=== PATIENT | female | born 1960 | race Caucasian/White ===

== ENCOUNTER 2016-07-23 08:35 | Day surgery (SDC) | payer MEDICARE, OTHER ==
[2016-07-22 15:01] VITALS: BMI 24.2
[2016-07-23] MEDS ORDERED: LIDOCAINE 1%/EPI 1:100000 (50 ML MULTI DOSE VIAL) ONE (08:41)
[2016-07-23 09:05] VITALS: TEMP 97.4
[2016-07-23] MEDS ORDERED: BUPIVACAINE HCL/PF 0.5% (5MG/ML) 10 ML VIAL ONE (10:28)
--- NOTE | 2016-07-23 10:31 | HP ---
History & Physical Update - History History: No Change - Physical Physical: No Change - Assessment Assessment: No Change - Plan Plan: No Change
[2016-07-23] MEDS ORDERED: MIDAZOLAM HCL 2 MG/2 ML SINGLE DOSE VIAL ONE ×2 (10:48→10:49)
[2016-07-23] MEDS ORDERED: PROPOFOL 20 ML ONE (11:00)
[2016-07-23] MEDS ORDERED: LIDOCAINE 1%/EPI 1:100000 (50 ML MULTI DOSE VIAL) INF ONE ×2 (11:03)
--- NOTE | 2016-07-23 12:02 | OP ---
Operative Note - Note: Operative Date: 07/23/16 Pre-Operative Diagnosis: bilateral forearm soft tissue masses Operation: Excision biopsy, bilateral forearm masses Surgeon: Shlomo Lu Anesthesia: Local, MAC Specimens Removed: soft tissue masses x 2 Estimated Blood Loss (mls): 1 Operative Report Dictated: Yes
[2016-07-23 13:11] VITALS: BP 110/70
--- NOTE | 2016-07-23 17:00 | OP ---
DATE OF OPERATION: 07/23/2016 PROCEDURE: Excision and biopsy of bilateral forearm masses (2). PREOPERATIVE DIAGNOSIS: Bilateral forearm soft tissue masses. POSTOPERATIVE DIAGNOSIS: Bilateral forearm soft tissue masses. SURGEON: Shlomo Lu MD ANESTHESIA: Local with sedation. FINDINGS AND PROCEDURE: This is a 55-year-old female who presents with slowly growing masses of the soft tissue of both forearms. The left forearm had a size of 2 cm in its widest diameter, moveable, and with well-defined borders on the dorsum of the forearm. The right forearm was smaller with about 1 cm in size and more firm, with well-defined borders and also moveable. Patient was advised excision and biopsy of both masses and consent was obtained after discussing the risks, benefits, and alternatives to the procedure. The patient was brought to the operating room and placed in a supine position with both arms abducted 90 degrees. The operative sites were prepped and draped in the usual sterile fashion. Intravenous sedation was given by the anesthesia team. Using lidocaine 1% with epinephrine, local anesthesia was administered to the proposed incision sites. The left forearm mass was addressed first, then making a 1.5-cm vertical incision over the mass using scalpel blade No. 15, dissection was carried down to the subcutaneous tissue until the fatty mass was exposed, and this was completely excised using the iris scissors combined with Bovie cautery down to its attachments to the fascia. The wound was then closed with interrupted Vicryl 3-0 suture for the dermis and continuous Biosyn 4-0 suture for the subcuticular layer. The wound closure was reinforced with Steri-Strips and covered with sterile dressing. The right forearm mass was addressed by making a 1.5-cm elliptical incision over the mass and dissection carried down using scalpel blade No. 15. Further dissection using iris scissors was done until the mass, which was grayish in color, encapsulated, was completely excised together with the ellipse of skin. The wound was closed with interrupted Vicryl 3-0 suture for the dermis and continuous Biosyn 4-0 suture for the subcuticular layer. The wound closure was also reinforced with Steri-Strips, then covered with sterile dressing. The patient was transferred to postanesthesia care unit in satisfactory condition. ESTIMATED BLOOD LOSS: About 1 mL. WOUND CLASS: Clean. Carmel [id number]
[2016-07-23 17:37] VITALS: PULSE 62
--- NOTE | 2016-07-27 15:57 | PATH ---
Surgical Pathology Report Patient Name: ALEIDA SILVERIO [facility]. Rec. #: [id number] /Age/Gender: 1960 (Age: 55) / F Account: [id number] Location: [facility] SURGICAL Taken: 07/23/2016 Received: 07/23/2016 Reported: 07/27/2016 Physicians: Shlomo Lu M.D. Specimen(s) Received A: MASS OF LEFT FOREARM B: MASS OF RIGHT FOREARM Clinical History Bilateral forearm masses Final Diagnosis A. SOFT TISSUE, LEFT FOREARM, MASS, EXCISION: MATURE ADIPOSE TISSUE CONSISTENT WITH LIPOMA WITH FOCAL DEGENERATIVE CHANGES. B. SKIN AND SOFT TISSUE, RIGHT FOREARM, MASS, EXCISION: FOREIGN BODY-TYPE REACTION WITH PIGMENT DEPOSITION AND FOREIGN BODY-TYPE MULTINUCLEATED GIANT CELL REACTION (FOREIGN BODY GRANULOMA). Comment: Iron stain is negative. Electronically Signed Jerzy Call M.D. Gross Description A. Received in formalin, labeled "mass left forearm" is a 1.5 x 1.1 x 0.7 cm rodriguez-yellow, irregular portion of lobulated adipose tissue. Sectioning reveals homogeneous yellow, smooth fat. No areas of hemorrhage or necrosis are identified. Insurance Underwriter Sales sections are submitted in one cassette. B. Received in formalin, labeled "mass right forearm" is a 1.1 x 0.9 x 0.2 cm aggregate of multiple rodriguez-yellow to black, irregular portions of soft tissue. The specimen is submitted in toto in one cassette. /07/23/201607/23/2016
== END 2016-07-23 13:50 | disposition home or self-care (01) ==
LOC: JASU-SURG 08:35
PROVIDERS: ATTEND Surgery
PROC: 0JBH0ZX Excision of Left Lower Arm Subcutaneous Tissue and Fascia, Open Approach, Diagnostic (ICD-10-PCS; 2016-07-23)
PROC: 0JBG0ZX Excision of Right Lower Arm Subcutaneous Tissue and Fascia, Open Approach, Diagnostic (ICD-10-PCS; principal; 2016-07-23 10:00)
DX: D21.12 Benign neoplasm of connective and other soft tissue of left upper limb, including shoulder (principal); D21.11 Benign neoplasm of connective and other soft tissue of right upper limb, including shoulder
CPT/HCPCS: 88304-TC; 88313-TC

== ENCOUNTER 2016-08-02 22:49 | Emergency (ER) | payer MEDICARE, OTHER ==
[2016-08-02 22:54] VITALS: BP 115/73; PULSE 62; TEMP 97.4; BMI 24.2
--- NOTE | 2016-08-02 23:27 | PDOC ---
History of Present Illness <Justin Mcdonald - Last Filed: 08/02/16 23:23> - General History Source: Patient Exam Limitations: No Limitations - History of Present Illness Initial Comments: 08/02/16 23:28 The patient is a 55 year old female with significant past medical history of hypothyroidism and acid reflux who presents to the ED with laceration to the right wrist just prior to arrival. 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 She also had complaints of some lightheadedness at the time the incident occurred. However at time of evaluation, she states not feeling lightheaded. The patient denies fever, chills, cough, SOB, chest pain, and palpitations. The patient denies abdominal pain, nausea, vomiting, and diarrhea. Allergies: NKDA Social History: No alcohol, tobacco, or drug use reported. Past Surgical History: partial right knee replacement, hernia repair PCP: Dr. Melany García <Gabrielle Sweeney - Last Filed: 08/02/16 23:29> - General Chief Complaint: Injury Stated Complaint: LACERATION Time Seen by Provider: 08/02/16 23:15 Past History - Past Medical History Anemia: No Asthma: No Cancer: No Cardiac Disorders: No CVA: No COPD: No CHF: No Dementia: No Diabetes: No (BORDERLINE - NO MEDS) GI Disorders: Yes (acid reflux) Disorders: No HTN: No Hypercholesterolemia: No Liver Disease: No Seizures: No Thyroid Disease: Yes (thyroid removed) - Surgical History Abdominal Surgery: Yes (HERNIA) Appendectomy: No Cardiac Surgery: No Cholecystectomy: No Lung Surgery: No Neurologic Surgery: No Orthopedic Surgery: Yes (PARTIAL RIGHT knee REPLACEMENT) - Psycho/Social/Smoking Cessation Hx Anxiety: No Suicidal Ideation: No Smoking Status: No Smoking History: Never smoked Have you smoked in the past 12 months: No Number of Cigarettes Smoked Daily: 0 Hx Alcohol Use: Yes (socially) Drug/Substance Use Hx: No Substance Use Type: Alcohol Hx Substance Use Treatment: No <Justin Mcdonald - Last Filed: 08/02/16 23:23> <Gabrielle Sweeney - Last Filed: 08/02/16 23:29> - Past Medical History Allergies/Adverse Reactions: Allergies Allergy/AdvReac Type Severity Reaction Status Date / Time No Known Drug Allergies Allergy Verified 08/02/16 22:51 Home Medications: Ambulatory Orders Levothyroxine [Synthroid -] 100 mcg PO DAILY 04/08/14 Ibuprofen 1 tab PO TID PRN #20 tablet 07/23/16 Review of Systems - Review of Systems Able to Perform ROS?: Yes Comments:: 08/02/16 23:28 +right wrist laceration, lightheadedness Absent: fever, chills, diaphoresis, cough, SOB, chest pain, abdominal pain, nausea, vomiting, and diarrhea <Gabrielle Sweeney - Last Filed: 08/02/16 23:29> *Physical Exam - Vital Signs Last Vital Signs Temp Pulse Resp BP Pulse Ox 97.4 F L 62 18 115/73 99 08/02/16 22:51 08/02/16 22:51 08/02/16 22:51 08/02/16 22:51 08/02/16 22:51 - Physical Exam General Appearance: Yes: Nourished, Appropriately Dressed. No: Apparent Distress Respiratory/Chest: negative: Respiratory Distress Cardiovascular: positive: Regular Rhythm, Regular Rate Integumentary: positive: Normal Color, Other (1 CM SUP LAC ULNAR ASPECT DOSTAL WRIST NTV INACT DISTALLY) <Justin Mcdonald - Last Filed: 08/02/16 23:23> - Vital Signs Last Vital Signs Temp Pulse Resp BP Pulse Ox 97.4 F L 62 18 115/73 99 08/02/16 22:51 08/02/16 22:51 08/02/16 22:51 08/02/16 22:51 08/02/16 22:51 <Gabrielle Sweeney - Last Filed: 08/02/16 23:29> Procedures - Laceration/Wound Repair Right Medial Wrist Wound Length: to 2.5 cm Wound Explored: clean Wound's Depth, Shape: superficial Irrigated w/ Saline: Yes Wound Repaired With: Dermabond Sterile Dressing Applied: Yes <Justin Mcdonald - Last Filed: 08/02/16 23:23> *DC/Admit/Observation/Transfer <Justin Mcdonald - Last Filed: 08/02/16 23:23> - Attestations Scribe Attestion: 08/02/16 23:28 Documentation prepared by Gabrielle Sweeney, acting as director of medical staff services for Justin Mcdonald MD <Gabrielle Sweeney - Last Filed: 08/02/16 23:29> Diagnosis at time of Disposition: Laceration - Discharge Dispostion Disposition: HOME Condition at time of disposition: Good - Referrals Referrals: Gloria García [Primary Care Provider] - - Patient Instructions Additional Instructions: KEEP WOUND DRY FOR 48 HOURS. AFTER, REGULAR SOAP AND WATER DO NOT REMOVE STERI-STRIPS. THEY WOULD FALL ON THEIR OWN RETURN IF BLEEDING, REDNESS, SWELLING, OR SEVERE PAIN
== END 2016-08-02 23:38 | disposition home or self-care (01) ==
LOC: JER 22:49
PROC: 0HQEXZZ Repair Left Lower Arm Skin, External Approach (ICD-10-PCS; principal; 2016-08-02)
DX: S61.511A Laceration without foreign body of right wrist, initial encounter (principal); W25.XXXA Contact with sharp glass, initial encounter; Y93.89 Activity, other specified; Y92.030 Kitchen in apartment as the place of occurrence of the external cause
CPT/HCPCS: 12001-25; 99282-25

== ENCOUNTER 2017-08-18 19:11 | Emergency (ER) | payer MEDICARE, OTHER ==
[2017-08-18 19:20] VITALS: BP 103/65; PULSE 75; TEMP 97.7; BMI 24.2
--- NOTE | 2017-08-18 20:28 | PDOC ---
History of Present Illness - General Chief Complaint: Pain, Acute Stated Complaint: SHOULDER/BACK PAIN Time Seen by Provider: 08/18/17 19:56 Past History - Past Medical History Allergies/Adverse Reactions: Allergies Allergy/AdvReac Type Severity Reaction Status Date / Time No Known Drug Allergies Allergy Verified 08/18/17 19:16 Home Medications: Ambulatory Orders Levothyroxine [Synthroid -] 100 mcg PO DAILY 04/08/14 Ibuprofen 600 mg PO TID #30 tablet 08/18/17 Oxycodone HCl/Acetaminophen [Percocet 5-325 mg Tablet] 1 tab PO Q6H PRN #20 tablet MDD 4 08/18/17 Anemia: No Asthma: No Cancer: No Cardiac Disorders: No CVA: No COPD: No CHF: No Dementia: No Diabetes: No (BORDERLINE - NO MEDS) GI Disorders: Yes (acid reflux) Disorders: No HTN: No Hypercholesterolemia: No Liver Disease: No Seizures: No Thyroid Disease: Yes (thyroid removed) - Surgical History Abdominal Surgery: Yes (HERNIA) Appendectomy: No Cardiac Surgery: No Cholecystectomy: No Lung Surgery: No Neurologic Surgery: No Orthopedic Surgery: Yes (PARTIAL RIGHT knee REPLACEMENT) - Suicide/Smoking/Psychosocial Hx Smoking Status: No Smoking History: Never smoked Have you smoked in the past 12 months: No Number of Cigarettes Smoked Daily: 0 Hx Alcohol Use: Yes (socially) Drug/Substance Use Hx: No Substance Use Type: Alcohol Hx Substance Use Treatment: No Review of Systems - Review of Systems Able to Perform ROS?: Yes Comments:: 08/18/17 20:28 CONSTITUTIONAL: Absent: fever, chills, diaphoresis, generalized weakness, malaise, loss of appetite HEENT: Absent: rhinorrhea, nasal congestion, throat pain, throat swelling, difficulty swallowing, mouth swelling, ear pain, eye pain, visual Changes CARDIOVASCULAR: Absent: chest pain, loss of consciousness, palpitations, irregular heart rate, peripheral edema RESPIRATORY: Absent: cough, shortness of breath, dyspnea with exertion, orthopnea, wheezing, stridor, hemoptysis GASTROINTESTINAL: Absent: abdominal pain, abdominal distension, nausea, vomiting, diarrhea, constipation, melena, hematochezia GENITOURINARY: Absent: dysuria, frequency, urgency, hesitancy, hematuria, flank pain, genital pain MUSCULOSKELETAL: Absent: myalgia, arthralgia, joint swelling SKIN: Absent: rash, itching, pallor HEMATOLOGIC/IMMUNOLOGIC: Absent: easy bleeding, easy bruising, lymphadenopathy, frequent infections ENDOCRINE: Absent: unexplained weight gain, unexplained weight loss, heat intolerance, cold intolerance NEUROLOGIC: Absent: headache, focal weakness or paresthesias, dizziness, unsteady gait, seizure, mental status changes, bladder or bowel incontinence PSYCHIATRIC: Absent: anxiety, depression, suicidal or homicidal ideation, hallucinations. Is the patient limited Greenlandic proficient: No *Physical Exam - Vital Signs Last Vital Signs Temp Pulse Resp BP Pulse Ox 97.7 F 75 18 103/65 97 08/18/17 19:17 08/18/17 19:17 08/18/17 19:17 08/18/17 19:17 08/18/17 19:17 - Physical Exam Comments: 08/18/17 20:29 GENERAL: Well developed, well nourished. Awake and alert. No acute distress. HEENT: Normocephalic, atraumatic. PERRLA, EOMI. No conjunctival pallor. Sclera are non- icteric. Moist mucous membranes. Oropharynx is clear. NECK: Supple. Full ROM. No JVD. Carotid pulses 2+ and symmetric, without bruits. No thyromegaly. No lymphadenopathy. CARDIOVASCULAR: Regular rate and rhythm. No murmurs, rubs, or gallops. Distal pulses are 2+ and symmetric. PULMONARY: No evidence of respiratory distress. Lungs clear to auscultation bilaterally. No wheezing, rales or rhonchi. ABDOMINAL: Soft. Non-tender. Non-distended. No rebound or guarding. No organomegaly. Normoactive bowel sounds. MUSCULOSKELETAL Normal range of motion at all joints. No bony deformities or tenderness. No CVA tenderness. EXTREMITIES: No cyanosis. No clubbing. No edema. No calf tenderness. SKIN: Warm and dry. Normal capillary refill. No rashes. No jaundice. NEUROLOGICAL: Alert, awake, appropriate. Cranial nerves 2-12 intact. No deficits to light touch and temperature in face, upper extremities and lower extremities. No motor deficits in the in face, upper extremities and lower extremities. Normoreflexic in the upper and lower extremities. Normal speech. Toes are down- going bilaterally. Gait is normal without ataxia. PSYCHIATRIC: Cooperative. Good eye contact. Appropriate mood and affect. *DC/Admit/Observation/Transfer Diagnosis at time of Disposition: Upper back pain Left shoulder pain Qualifiers: Chronicity: acute Qualified Code(s): M25.512 - Pain in left shoulder - Discharge Dispostion Disposition: HOME Condition at time of disposition: Stable Admit: No - Referrals Referrals: Gloria García [Primary Care Provider] - Kiet Gamble MD [Staff Physician] - - Patient Instructions Printed Discharge Instructions: DI for Shoulder Pain Additional Instructions: You were evaluated for your shoulder pain today. Please take ibuprofen 800 mg every 8 hours for the next week. Your also prescribed Percocet. Please take this medication every 6 hours as needed for breakthrough pain. Do not drive after taking this medication as it may make you sleepy. Please follow-up with orthopedics. A referral is provided for Dr. Gamble. Return to the emergency department if you have worsening pain, numbness and tingling in your arms, weakness, or any changes in your symptoms. Print Language: CUBAN - Post Discharge Activity
[2017-08-18] MEDS ORDERED: IBUPROFEN 600 MG TABLET (FP) PO ONE ×2 (20:44→20:48)
[2017-08-18] MEDS ORDERED: IBUPROFEN 400 MG TABLET (FP) PO ONE (20:47)
== END 2017-08-18 20:51 | disposition home or self-care (01) ==
LOC: JERFT 19:11
DX: M54.9 Dorsalgia, unspecified (principal); M25.512 Pain in left shoulder; R73.03 Prediabetes
CPT/HCPCS: 99281-25

== ENCOUNTER 2017-09-14 05:05 | Day surgery (SDC) | payer MEDICARE, OTHER ==
[2017-09-08 09:04] VITALS: BMI 24.2
[2017-09-14] MEDS ORDERED: DESFLURANE GAS 240 ML BOTTLE IH ONE (07:21)
[2017-09-14] MEDS ORDERED: PROPOFOL 20 ML ONE (07:37)
[2017-09-14] MEDS ORDERED: SUCCINYLCHOLINE CHLORIDE 200 MG/10 ML VIAL ONE (07:37)
[2017-09-14] MEDS ORDERED: ONDANSETRON 4 MG/2 ML VIAL IVPUSH PRN (07:38)
[2017-09-14] MEDS ORDERED: ROCURONIUM BROMIDE 50 MG/5 ML VIAL ONE (07:38)
[2017-09-14] MEDS ORDERED: oxyCODONE HCL 5 MG TABLET PO PRN ×2 (07:38)
[2017-09-14] MEDS ORDERED: DEXAMETHASONE SOD PHOSPHATE 4 MG/1 ML VIAL ONE (07:40)
[2017-09-14] MEDS ORDERED: LIDOCAINE HCL/PF 2% SDV 5ML VIAL ONE (07:40)
[2017-09-14] MEDS ORDERED: LACTATED RINGERS SOLUTION 1,000 ML IV SCH (07:45)
[2017-09-14] MEDS ORDERED: DEXAMETHASONE SOD PHOSPHATE/PF 10 MG/ML SDV ONE (08:01)
[2017-09-14] MEDS ORDERED: ROPIVACAINE HCL 0.5% 30ML VIAL ONE (08:01)
--- NOTE | 2017-09-14 08:01 | HP ---
Satellite H - Chief Complaint Chief Complaint: left shoulder impingement, pain History of Present Illness: left shoulder impingement syndrome, partial RTC tear History Source: Patient Limitations to Obtaining History: No Limitations - Past Medical History Allergies/Adverse Reactions: Allergies Allergy/AdvReac Type Severity Reaction Status Date / Time No Known Drug Allergies Allergy Verified 09/14/17 07:37 ...LMP: 10/21/11 - Current Medications Current Medications: Home Medications Medication Instructions Recorded Levothyroxine [Synthroid -] 175 mcg PO DAILY 04/08/14 Ibuprofen 600 mg PO TID #30 tablet 08/18/17 Oxycodone HCl/Acetaminophen 1 tab PO Q6H PRN #20 tablet MDD 4 08/18/17 [Percocet 5-325 mg Tablet] Satellite Physical Exam - Physical Examination Vital Signs: Vital Signs Period Temp Pulse Resp BP Sys/Gagnon Pulse Ox Last 24 Hr 97.9 F 59 16 100/67 98 General Appearance: Well Nourished ENT: Clear Lung: Clear to auscultation Heart: Regular rate & rhythm Breasts: Soft Abdomen: Soft Extremities: No edema Satellite Impression/Plan - Impression/Plan Impression: left shoulder impingement syndrome, partial RTC tear Operative Procedure: left shoulder arthroscopy, decompresion, possible RTC repair Date to be Performed: 09/14/17
[2017-09-14] MEDS ORDERED: MIDAZOLAM HCL 2 MG/2 ML SINGLE DOSE VIAL ONE ×2 (08:02)
[2017-09-14] MEDS ORDERED: ceFAZolin SODIUM 1 GM VIAL IVPB ONE (08:55)
[2017-09-14] MEDS ORDERED: ceFAZolin SODIUM 1 GM VIAL ONE (09:00)
[2017-09-14] MEDS ORDERED: ePHEDrine SULFATE 50 MG/1 ML AMPULE ONE (09:15)
--- NOTE | 2017-09-14 09:48 | OP ---
Operative Note - Note: Operative Date: 09/14/17 Pre-Operative Diagnosis: left shoulder subacromial impingement, Partial RTC tear Operation: left shoulder arthroscopy, subacromial decompression Post-Operative Diagnosis: Same as Pre-op Surgeon: Kiet Gamble Anesthesiologist/CORN CUTTER: Kyler Aviles Anesthesia: General, MAC Specimens Removed: shavings Estimated Blood Loss (mls): 75 Drains, Volume Out (mls): 0 Blood Volume Replaced (mls): 0 Fluid Volume Replaced (mls): 700 Operative Report Dictated: Yes
--- NOTE | 2017-09-14 10:13 | SPEC ---
DATE OF OPERATION: 09/14/2017 PREOPERATIVE DIAGNOSES: Left shoulder impingement syndrome and partial rotator cuff tear. POSTOPERATIVE DIAGNOSES: Left shoulder impingement syndrome and partial rotator cuff tear. PROCEDURE: Left shoulder arthroscopy and subacromial decompression. SURGEON: Kiet Gamble MD DIP BRAZIER: None. INTELLIGENCE AGENT: , COUNTERSINKER ANESTHESIA: Left interscalene block, LMA anesthesia. DRAINS: None. COMPLICATIONS: None. BLOOD LOSS: 75 mL. BLOOD GIVEN: None. FLUID REPLACEMENT: 700 mL. This patient is a 56-year-old female with a preoperative diagnosis of recurrent left shoulder impingement syndrome and a partial rotator cuff tear. After understanding the potential risks, complications, alternatives and benefits of surgery versus nonsurgical treatment, the patient elected to undergo this procedure. PROCEDURE: The patient was brought to the operating room. Peripheral IV placed. IV sedation given. Ancef 2 g was given. A left interscalene block was performed. She was placed in the beach chair position with ample padding throughout. The upper extremity was prepped and draped in a sterile fashion. The bony landmarks marked out with a marking pen. Posterior portal was established with a No. 11 scalpel blade and the arthroscope introduced into the glenohumeral joint for diagnostic arthroscopy. All the intraarticular structures were identified and looked good. The glenoid labrum looked good. The biceps tendon was intact. The glenoid and humeral head were free of arthritis. The patient had a very small amount of undersurface fraying of the rotator cuff. There was no tear. It did not need to be debrided. The area was washed out and the arthroscope introduced into the subacromial space. The patient had a tremendous amount of bursitis in the subacromial space. A spinal needle was used to establish a lateral portal under direct visualization. A No. 11 scalpel blade was used to cut through the skin and a Green cannula introduced into the subacromial space. The ArthroCare ablator was then used to do a soft tissue subacromial decompression of all this adhesive inflammatory bursitis. This revealed a large subacromial spur which was taken down with a 5.5-mm oval bur. Once this was done and the undersurface of the acromion was flat and the bursectomy was completed, the top surface of the rotator cuff was directly visualized and was seen to be intact with no tear whatsoever. The shaver was reintroduced into the subacromial space. All debris was removed and all instrumentation then removed from the shoulder. Then 20 mL of 0.5% Marcaine was introduced into the subacromial space. A 3-0 nylon suture was used in a sport stitch fashion to close the 2 arthroscopy portals. There was a wash and dry performed with Xeroform, 4 x 4, ABD and tape. Total operative time was 45 minutes. A splint was applied. Patient was taken down out of the beach chair position and brought to the ambulatory recovery room in stable condition. Carmel [id number]
[2017-09-14 12:02] VITALS: BP 111/71; PULSE 65; TEMP 97.8
--- NOTE | 2017-09-16 08:58 | PATH ---
Surgical Pathology Report Patient Name: ALEIDA SILVERIO Med. Rec. #: [id number] /Age/Gender: 1960 (Age: 56) / F Account: [id number] Location: [facility] SURGICAL Taken: 09/14/2017 Received: 09/14/2017 Reported: 09/16/2017 Physicians: Kiet Gamble M.D. Specimen(s) Received LEFT SHOULDER SHAVINGS Clinical History Impingement syndrome left shoulder Final Diagnosis LEFT SHOULDER, ARTHROSCOPIC SHAVING: PORTIONS OF SYNOVIUM, CARTILAGE, SKELETAL MUSCLE AND BONE CONSISTENT WITH ARTHROSCOPIC SHAVINGS. Electronically Signed [place] M.D. Gross Description Received in formalin, labeled "left shoulder shavings," is a 3.5 x 3.4 x 0.5 cm. aggregate of rodriguez-yellow soft tissue fragments. A publications sales representative portion is submitted in one cassette. /09/14/201709/14/2017
== END 2017-09-14 12:31 | disposition home or self-care (01) ==
LOC: JASU-SURG 05:05
PROVIDERS: ATTEND Orthopaedic Surgery
PROC: 0RBK4ZZ Excision of Left Shoulder Joint, Percutaneous Endoscopic Approach (ICD-10-PCS; principal; 2017-09-14 09:00)
DX: M75.42 Impingement syndrome of left shoulder (principal); M75.102 Unspecified rotator cuff tear or rupture of left shoulder, not specified as traumatic; M71.9 Bursopathy, unspecified
CPT/HCPCS: 88304-TC; 94760

== ENCOUNTER 2019-07-10 15:10 | Emergency (ER) | payer OTHER ==
--- NOTE | 2019-07-10 15:27 | PDOC ---
Rapid Medical Evaluation Chief Complaint: Pain Time Seen by Provider: 07/10/19 15:24 Medical Evaluation: Allergies Allergy/AdvReac Type Severity Reaction Status Date / Time No Known Drug Allergies Allergy Verified 07/10/19 15:23 07/10/19 15:24 I have performed a brief in-person evaluation of this patient. The patient presents with a chief complaint of: h/o prediabetes, GERD, LT flank pain radiating to back x 3 days. Denies dysuria, frequency or hematuria. report nausea but denies vomiting Pertinent physical exam findings: A&O x 3 in NAD I have ordered the following: cbc, cmp, ua, ucx The patient will proceed to the ED for further evaluation. Discharge Disposition - Diagnosis Left flank pain - Discharge Dispostion Condition at time of disposition: Stable - Referrals - Patient Instructions - Post Discharge Activity
[2019-07-10 15:28] VITALS: BMI 23.6
[2019-07-10] MEDS ORDERED: MAG HYDROX/AL HYDROX/SIMETH 30 ML UNIT-DOSE CUP PO ONE (16:11)
--- NOTE | 2019-07-10 16:26 | PDOC ---
History of Present Illness - General Chief Complaint: Pain Stated Complaint: ABD PAIN Time Seen by Provider: 07/10/19 15:24 History Source: Patient Exam Limitations: No Limitations Past History - Past Medical History Allergies/Adverse Reactions: Allergies Allergy/AdvReac Type Severity Reaction Status Date / Time No Known Drug Allergies Allergy Verified 07/10/19 15:23 Home Medications: Ambulatory Orders Levothyroxine [Synthroid -] 175 mcg PO DAILY 04/08/14 Ibuprofen 600 mg PO TID #30 tablet 08/18/17 Oxycodone HCl/Acetaminophen [Percocet 5-325 mg Tablet] 1 tab PO Q6H PRN #20 tablet MDD 4 08/18/17 Hydrocodone/Acetaminophen [Hydrocodone-Acetamin 5-325 mg] 1 - 2 tab PO TID PRN # 40 tablet MDD 6 09/14/17 Anemia: No Asthma: No Cancer: No Cardiac Disorders: No CVA: No COPD: No CHF: No Dementia: No Diabetes: No (BORDERLINE - NO MEDS) GI Disorders: Yes (acid reflux) Disorders: No HTN: No Hypercholesterolemia: No Liver Disease: No Seizures: No Thyroid Disease: Yes (thyroid removed) - Surgical History Abdominal Surgery: Yes (UMBILICAL HERNIA) Appendectomy: No Cardiac Surgery: No Cholecystectomy: No Lung Surgery: No Neurologic Surgery: No Orthopedic Surgery: Yes (PARTIAL RIGHT knee REPLACEMENT) - Immunization History Immunization Up to Date: Yes - Psycho Social/Smoking Cessation Hx Smoking Status: No Smoking History: Never smoked Have you smoked in the past 12 months: No Number of Cigarettes Smoked Daily: 0 If you are a former smoker, when did you quit?: 21YRS AGO Hx Alcohol Use: No Drug/Substance Use Hx: No Substance Use Type: Alcohol Hx Substance Use Treatment: No *Physical Exam - Vital Signs Last Vital Signs Temp Pulse Resp BP Pulse Ox 97.9 F 79 16 107/70 100 07/10/19 15:24 07/10/19 15:24 07/10/19 15:24 07/10/19 15:24 07/10/19 15:24 - Physical Exam General Appearance: No: Apparent Distress Respiratory/Chest: positive: Lungs Clear, Normal Breath Sounds. negative: Respiratory Distress Cardiovascular: positive: Regular Rhythm, Regular Rate, S1, S2. negative: Murmur Gastrointestinal/Abdominal: positive: Tender (mild along LUQ), Soft. negative: Distended, Guarding, Rebound, Hernia, Mass Musculoskeletal: positive: CVA Tenderness (L) (mild) Integumentary: positive: Normal Color Neurologic: positive: Alert ED Treatment Course - LABORATORY CBC & Chemistry Diagram: 07/10/19 15:35 07/10/19 15:30 Medical Decision Making - Medical Decision Making 58 y/o F hx of pre-DM, GERD presents with LUQ pain radiating to L flank x 3 days along with nausea. Pain worse after eating food but does not feel like her GERD. Has been using Tylenol and Motrin without relief of symptoms. Denies fever , URI sxs, sob, cp, vomiting/diarrhea, dysuria, hematuria, constipation. Last BM was today. Hx of thyroidectomy 5 years ago and umbilical hernia repair 4 years ago. Denies alcohol intoxication Consider pancreatitis, kidney stone (less suspicious given how comfortable patient appears) Plan: Labs, urine 07/10/19 16:23 Abnormal Lab Results 07/10/19 07/10/19 15:30 15:35 Anion Gap 7 L Random Glucose 278 H Lipase 803 H Urine Glucose (UA) 3+ H Labs with elevated lipase, though not 3x the upper limit D/W Dr. Hennessy - recommends CT A/P to further assess 07/10/19 17:46 CT A/P shows chronic calcific pancreatitis with dilation of the main pancreatic duct and possible obstructing intradutal calucli in the region of the ampulla As d/w Dr. Moody, this was also seen in CT A/P 04/2017 (though not listed in the report) patient still with LUQ pain D/W Dr. Hennessy - recommends GI consult, possible admit Patient signed out to CYNDE[facility] pandey pending GI consult 07/10/19 19:16 Discharge - Discharge Information Problems reviewed: Yes Clinical Impression/Diagnosis: Left upper quadrant pain Condition: Stable - Follow up/Referral Referrals: Gloria García [Primary Care Provider] - - Patient Discharge Instructions - Post Discharge Activity
[2019-07-10 16:31] LABS: URINE APPEARANCE CLEAR; URINE BILIRUBIN NEGATIVE (NEGATIVE); URINE COLOR YELLOW; URINE GLUCOSE (UA) 3+ (NEGATIVE); URINE KETONE NEGATIVE (NEGATIVE); URINE LEUK ESTERASE NEGATIVE (NEGATIVE); URINE NITRITE NEGATIVE (NEGATIVE); URINE PROTEIN NEGATIVE (NEGATIVE); URINE UROBILINOGEN 0.2 mg/dL (0.2-1.0)
[2019-07-10] MEDS ORDERED: MAG HYDROX/AL HYDROX/SIMETH 30 ML UNIT-DOSE CUP ONE ×2 (16:38→16:39)
[2019-07-10 16:41] LABS: BASO % 0.4 % (0-2.0); EOS % 3.4 % (0-4.5); HEMATOCRIT 39.6 % (32.4-45.2); HEMOGLOBIN 13.1 GM/dL (10.7-15.3); LYMPH % 24.7 % (8-40); MCH 28.5 pg (25.7-33.7); MEAN CELL VOLUME 86.2 fl (80-96); MEAN PLT VOLUME 9.3 fl (7.5-11.1); MONO % 9.4 % (3.8-10.2); NEUT % 62.1 % (42.8-82.8); PLATELET COUNT 182 K/MM3 (134-434); RDW 14.5 % (11.6-15.6); WHITE BLOOD COUNT 6.7 K/mm3 (4.0-10.0)
[2019-07-10 17:07] LABS: ALBUMIN 3.9 g/dl (3.4-5.0); BILIRUBIN,TOTAL 0.4 mg/dL (0.2-1); CALCIUM 9.3 mg/dL (8.5-10.1); CREATININE 0.9 mg/dL (0.55-1.3); TOT PROT 7.9 g/dl (6.4-8.2)
[2019-07-10] MEDS ORDERED: SODIUM CHLORIDE 1,000 ML IV STA (17:29)
--- NOTE | 2019-07-10 19:43 | PDOC ---
*Physical Exam - Vital Signs Last Vital Signs Temp Pulse Resp BP Pulse Ox 97.9 F 79 16 107/70 100 07/10/19 15:24 07/10/19 15:24 07/10/19 15:24 07/10/19 15:24 07/10/19 15:24 ED Treatment Course - LABORATORY CBC & Chemistry Diagram: 07/10/19 15:35 07/10/19 15:30 - ADDITIONAL ORDERS Additional order review: Laboratory Results 07/10/19 07/10/19 15:35 15:30 Sodium 138 Potassium 4.0 Chloride 104 Carbon Dioxide 27 Anion Gap 7 L BUN 15.0 Creatinine 0.9 Est GFR (CKD-EPI)AfAm 82.26 Est GFR (CKD-EPI)NonAf 70.98 Random Glucose 278 H Calcium 9.3 Total Bilirubin 0.4 AST 19 ALT 25 Alkaline Phosphatase 109 Total Protein 7.9 Albumin 3.9 Lipase 803 H Urine Color Yellow Urine Appearance Clear Urine pH 5.0 D Ur Specific [place] 1.021 Urine Protein Negative Urine Glucose (UA) 3+ H Urine Ketones Negative Urine Blood Negative Urine Nitrite Negative Urine Bilirubin Negative Urine Urobilinogen 0.2 Ur Leukocyte Esterase Negative 07/10/19 15:35 RBC 4.60 MCV 86.2 MCHC 33.0 RDW 14.5 MPV 9.3 D Neutrophils % 62.1 D Lymphocytes % 24.7 D Monocytes % 9.4 Eosinophils % 3.4 Basophils % 0.4 - Medications Given in the ED: ED Medications Discontinued Medications Generic Name Dose Route Start Last Admin Trade Name Freq PRN Reason Stop Dose Admin Al Hydroxide/Mg Hydroxide 30 ml 07/10/19 16:11 07/10/19 16:49 Mylanta Oral Suspension - PO 07/10/19 16:12 30 ml ONCE ONE Administration Sodium Chloride 1,000 mls @ 1,000 mls/hr 07/10/19 17:29 07/10/19 18:13 Normal Saline - IV 07/10/19 18:28 1,000 mls/hr ASDIR STA Administration Medical Decision Making - Medical Decision Making 07/10/19 19:45 Dr. Kerns paged. 07/10/19 20:[address] Kerns. recommends transfer to tertiary center. concerned for obstructed stone in pancreatic duct. need ERCP. recommend transfer to [facility] 07/10/19 21:16 [facility] transfer initiated pending call back from [facility] 07/10/19 22:47 patient is accepted for transfer BY GI Dr. murphy (GI fellow)/ Dr. Nichole to be transferred to the [facility] ED./ I spoke to ED attending Dr. Thayer. accepted patient for transfer 07/10/19 22:49 Discharge - Discharge Information Problems reviewed: Yes Clinical Impression/Diagnosis: Left upper quadrant pain Pancreatitis Qualifiers: Chronicity: chronic Pancreatitis type: unspecified pancreatitis type Qualified Code(s): K86.1 - Other chronic pancreatitis Condition: Stable Disposition: TRANSFER ACUTE CARE/OTHER HOSP - Follow up/Referral Referrals: Gloria García [Primary Care Provider] - - Patient Discharge Instructions - Post Discharge Activity
[2019-07-10] MEDS ORDERED: SODIUM CHLORIDE 1,000 ML IV SCH (19:45)
[2019-07-10 23:25] VITALS: BP 111/75; TEMP 97.8
[2019-07-11 00:26] VITALS: PULSE 71
== END 2019-07-11 00:27 | disposition short-term general hospital (02) ==
LOC: JER 15:10
PROC: 3E0337Z Introduction of Electrolytic and Water Balance Substance into Peripheral Vein, Percutaneous Approach (ICD-10-PCS; principal; 2019-07-10)
DX: K86.1 Other chronic pancreatitis (principal); K21.9 Gastro-esophageal reflux disease without esophagitis; R73.09 Other abnormal glucose; E89.0 Postprocedural hypothyroidism
CPT/HCPCS: 36415; 74177-TC; 80053; 81003; 83690; 85025; 87086; 96360; 99284-25; J7030; Q9967

== ENCOUNTER 2022-07-06 04:08 | Day surgery (SDC) | payer OTHER ==
[2022-07-01 14:04] VITALS: BMI 22.6
[~2022-07-06 04:08] MED LIST: ceFAZolin SODIUM 1 GM VIAL IVPB ONE
[2022-07-06 08:53] VITALS: RESP 18
[2022-07-06] MEDS ORDERED: MIDAZOLAM HCL 2 MG/2 ML SINGLE DOSE VIAL ONE (11:05)
[2022-07-06] MEDS ORDERED: ceFAZolin SODIUM 1 GM VIAL IVPB ONE (11:08)
[2022-07-06 12:51] VITALS: BP 114/62; TEMP 97
[2022-07-06 12:52] VITALS: PULSE 68
== END 2022-07-06 12:45 | disposition home or self-care (01) ==
LOC: JASU-SURG 04:08
PROVIDERS: ATTEND Urology
PROC: 0TF4XZZ Fragmentation in Left Kidney Pelvis, External Approach (ICD-10-PCS; principal; 2022-07-06 10:30)
DX: N20.0 Calculus of kidney (principal); R31.29 Other microscopic hematuria; R39.198 Other difficulties with micturition

== ENCOUNTER 2022-07-09 16:47 | Emergency (ER) | payer OTHER ==
[2022-07-09 17:07] VITALS: BP 102/55; PULSE 67; RESP 18; TEMP 98.1; BMI 22.6
[2022-07-09] MEDS ORDERED: DOXYCYCLINE HYCLATE 100 MG CAPSULE PO ONE ×2 (17:39→17:46)
== END 2022-07-09 19:35 | disposition home or self-care (01) ==
LOC: JER 16:47
DX: T81.31XA Disruption of external operation (surgical) wound, not elsewhere classified, initial encounter (principal)
CPT/HCPCS: 73110-TC-RT-FY; 73130-TC-RT-FY; 99283-25

== ENCOUNTER 2023-08-08 18:55 | Emergency (ER) | payer OTHER ==
[2023-08-08 19:29] VITALS: RESP 18; BMI 22.6
[2023-08-08] MEDS ORDERED: ACETAMINOPHEN INJECTION 100 ML IVPB ONE (20:47)
[2023-08-08] MEDS: ACETAMINOPHEN 1000 MG/100 ML BAG IVPB ONE (21:01)
[2023-08-08 21:24] LABS: BASO % 0.4 % (0-2.0); EOS % 2.6 % (0-4.5); HEMATOCRIT 35.4 % (32.4-45.2); HEMOGLOBIN 12.1 GM/dL (10.7-15.3); LYMPH % 20.8 % (8-40); MCHC 34.3 g/dl (32.0-36.0); MEAN CELL VOLUME 81.6 fl (80-96); MEAN PLT VOLUME 8.6 fl (7.5-11.1); MONO % 13.4 % (3.8-10.2); NEUT % 62.8 % (42.8-82.8); PLATELET COUNT 193 10^3/uL (134-434); RBC 4.34 M/mm3 (3.60-5.2); RDW 14.1 % (11.6-15.6); WHITE BLOOD COUNT 8.2 K/mm3 (4.0-10.0)
[2023-08-08 21:43] LABS: POTASSIUM 4.5 mmol/L (3.5-5.1)
[2023-08-08 21:47] LABS: ALBUMIN 3.4 g/dl (3.4-5.0)
[2023-08-08 21:48] LABS: CALCIUM 9.9 mg/dL (8.5-10.1)
[2023-08-08 21:49] LABS: CREATININE 0.7 mg/dL (0.55-1.3); TOT PROT 7.6 g/dl (6.4-8.2)
[2023-08-08 21:50] LABS: BILIRUBIN,TOTAL 0.4 mg/dL (0.2-1)
[2023-08-08 23:02] LABS: EPI CELLS 2 /uL (0-25.1); HYALINE CASTS 0 /uL (0-3.1); PH,URINE 6.5 (5.0-8.0); URINE APPEARANCE CLEAR; URINE BACTERIA 8 /uL (0-1359); URINE BILIRUBIN NEGATIVE (NEGATIVE); URINE COLOR YELLOW; URINE GLUCOSE (UA) NEGATIVE (NEGATIVE); URINE KETONE NEGATIVE (NEGATIVE); URINE LEUK ESTERASE TRACE (NEGATIVE); URINE NITRITE NEGATIVE (NEGATIVE); URINE PROTEIN NEGATIVE (NEGATIVE); URINE RBC 14 /uL (0-23.9); URINE UROBILINOGEN 0.2 mg/dL (0.2-1.0); URINE WBC 4 /uL (0-25.8)
[2023-08-08 23:43] VITALS: BP 118/68; PULSE 72; TEMP 98.6
== END 2023-08-08 23:29 | disposition home or self-care (01) ==
LOC: JER 18:55
PROC: 3E033NZ Introduction of Analgesics, Hypnotics, Sedatives into Peripheral Vein, Percutaneous Approach (ICD-10-PCS; principal; 2023-08-08)
DX: M79.10 Myalgia, unspecified site (principal); J06.9 Acute upper respiratory infection, unspecified; R05.9 Cough, unspecified; R11.0 Nausea; R50.9 Fever, unspecified; R09.89 Other specified symptoms and signs involving the circulatory and respiratory systems; R53.81 Other malaise; Z20.822 Contact with and (suspected) exposure to COVID-19
CPT/HCPCS: 0241U-QW; 36415; 80053; 81003; 83690; 84484; 85025; 87086; 93005; 93010; 96374; 99284-25; J0131

== ENCOUNTER 2023-10-21 17:11 | Emergency (ER) | payer OTHER ==
[2023-10-21 17:31] VITALS: BP 103/65; PULSE 69; RESP 18; TEMP 98; BMI 22.6
[2023-10-21] MEDS ORDERED: ACETAMINOPHEN 325 MG TABLET (FP) ONE (18:46)
[2023-10-21 18:48] LABS: BASO % 0.6 % (0-2.0); EOS % 3.8 % (0-4.5); HEMATOCRIT 38.5 % (32.4-45.2); HEMOGLOBIN 12.6 GM/dL (10.7-15.3); LYMPH % 36.4 % (8-40); MCH 27.7 pg (25.7-33.7); MCHC 32.9 g/dl (32.0-36.0); MEAN CELL VOLUME 84.2 fl (80-96); MEAN PLT VOLUME 8.2 fl (7.5-11.1); NEUT % 49.2 % (42.8-82.8); PLATELET COUNT 172 10^3/uL (134-434); RBC 4.57 M/mm3 (3.60-5.2); RDW 15.6 % (11.6-15.6); WHITE BLOOD COUNT 5.6 K/mm3 (4.0-10.0)
[2023-10-21 18:49] LABS: EPI CELLS 5 /uL (0-25.1); HYALINE CASTS 0 /uL (0-3.1); PH,URINE 8.5 (5.0-8.0); URINE APPEARANCE CLEAR; URINE BACTERIA 22 /uL (0-1359); URINE BILIRUBIN NEGATIVE (NEGATIVE); URINE COLOR YELLOW; URINE GLUCOSE (UA) NEGATIVE (NEGATIVE); URINE KETONE NEGATIVE (NEGATIVE); URINE LEUK ESTERASE 1+ (NEGATIVE); URINE NITRITE NEGATIVE (NEGATIVE); URINE PROTEIN NEGATIVE (NEGATIVE); URINE RBC 10 /uL (0-23.9); URINE UROBILINOGEN 0.2 mg/dL (0.2-1.0); URINE WBC 85 /uL (0-25.8)
[2023-10-21] MEDS: ACETAMINOPHEN 325 MG TABLET (FP) PO ONE (18:50)
[2023-10-21 19:12] LABS: POTASSIUM 4.4 mmol/L (3.5-5.1)
[2023-10-21 19:15] LABS: CALCIUM 9.8 mg/dL (8.5-10.1)
[2023-10-21 19:16] LABS: ALBUMIN 3.7 g/dl (3.4-5.0); BLOOD UREA NITROGEN 15.6 mg/dL (7-18)
[2023-10-21 19:18] LABS: CREATININE 1.1 mg/dL (0.55-1.3)
[2023-10-21 19:21] LABS: BILIRUBIN,TOTAL 0.3 mg/dL (0.2-1); TOT PROT 7.4 g/dl (6.4-8.2)
[2023-10-21] MEDS ORDERED: KETOROLAC TROMETHAMINE 15 MG/ML VIAL ONE (19:25)
[2023-10-21] MEDS: KETOROLAC TROMETHAMINE 15 MG/ML VIAL IVPUSH ONE (19:31)
[2023-10-21] MEDS ORDERED: METHOCARBAMOL 500 MG TABLET ONE (20:03)
[2023-10-21] MEDS ORDERED: MAG HYDROX/AL HYDROX/SIMETH 30 ML UNIT-DOSE CUP ONE (20:03)
[2023-10-21] MEDS: MAG HYDROX/AL HYDROX/SIMETH 30 ML UNIT-DOSE CUP PO ONE (20:07)
[2023-10-21] MEDS: METHOCARBAMOL 500 MG TABLET PO ONE (20:07)
== END 2023-10-21 20:14 | disposition home or self-care (01) ==
LOC: JER 17:11
PROC: 3E0333Z Introduction of Anti-inflammatory into Peripheral Vein, Percutaneous Approach (ICD-10-PCS; principal; 2023-10-21)
DX: M54.50 Low back pain, unspecified (principal); R31.9 Hematuria, unspecified; R10.12 Left upper quadrant pain; M79.10 Myalgia, unspecified site; R14.1 Gas pain
CPT/HCPCS: 36415; 80053; 81003; 85025; 87086; 96374; 99284-25

== ENCOUNTER 2024-05-26 06:36 | Emergency (ER) | payer OTHER ==
[2024-05-26 06:48] VITALS: RESP 18; BMI 24.2
[2024-05-26] MEDS ORDERED: ACETAMINOPHEN 500 MG TABLET (FP) ONE (07:46)
[2024-05-26] MEDS: ACETAMINOPHEN 500 MG TABLET (FP) PO ONE (07:47)
[2024-05-26 08:11] LABS: THROAT:GRP A STREP NOT DETECTED (NOTDETECTED)
[2024-05-26] MEDS: SODIUM CHLORIDE FOR INHALATION 3 ML VIAL.NEB IH ONE (08:23)
[2024-05-26 09:08] VITALS: BP 98/58; PULSE 84; TEMP 98
== END 2024-05-26 09:59 | disposition home or self-care (01) ==
LOC: JERFT 06:36 → JER 06:36 → JERFT 09:59
DX: R05.9 Cough, unspecified (principal); J22 Unspecified acute lower respiratory infection; R50.9 Fever, unspecified; M79.10 Myalgia, unspecified site; R09.89 Other specified symptoms and signs involving the circulatory and respiratory systems; Z20.822 Contact with and (suspected) exposure to COVID-19
CPT/HCPCS: 0241U-QW; 71046-TC-FY; 87651; 99284-25

== ENCOUNTER 2024-05-31 03:42 | Observation (INO) | payer OTHER ==
[2024-05-31 03:59] VITALS: BMI 22.4
[2024-05-31] MEDS ORDERED: ALBUTEROL SO4 HFA INHALER IH ONE (04:30)
[2024-05-31] MEDS: SODIUM CHLORIDE FOR INHALATION 3 ML VIAL.NEB IH ONE (04:41)
[2024-05-31] MEDS: ALBUTEROL SO4 HFA INHALER IH ONE (04:42)
[2024-05-31] MEDS ORDERED: guaiFENesin/CODEINE 10 ML UNIT-DOSE CUPS ONE (05:03)
[2024-05-31] MEDS: guaiFENesin/CODEINE 10 ML UNIT-DOSE CUPS PO ONE (05:10)
[2024-05-31] MEDS ORDERED: CEFTRIAXONE 1 G/50 ML PREMIX 50 ML IVPB ONE (05:12)
[2024-05-31 05:43] LABS: BASO % 0.3 % (0-2.0); HEMATOCRIT 34.2 % (32.4-45.2); HEMOGLOBIN 11.4 GM/dL (10.7-15.3); MCH 27.8 pg (25.7-33.7); MCHC 33.4 g/dl (32.0-36.0); MEAN CELL VOLUME 83.1 fl (80-96); MEAN PLT VOLUME 8.7 fl (7.5-11.1); MONO % 8.5 % (3.8-10.2); NEUT % 76.2 % (42.8-82.8); PLATELET COUNT 249 10^3/uL (134-434); RBC 4.12 M/mm3 (3.60-5.2)
[2024-05-31] MEDS ORDERED: ACETAMINOPHEN INJECTION 100 ML ONE (05:54)
[2024-05-31 05:56] LABS: INR 1.04 (0.83-1.09)
[2024-05-31 05:59] LABS: ACTIVATED PTT 28.4 SECONDS (25.2-36.5)
[2024-05-31] MEDS: ACETAMINOPHEN 1000 MG/100 ML BAG IVPB ONE (06:00)
[2024-05-31 06:22] LABS: POTASSIUM 4.2 mmol/L (3.5-5.1)
[2024-05-31 06:24] LABS: CALCIUM 9.7 mg/dL (8.5-10.1)
[2024-05-31 06:25] LABS: ALBUMIN 3.2 g/dl (3.4-5.0); BLOOD UREA NITROGEN 26.2 mg/dL (7-18); MAGNESIUM 1.8 mg/dL (1.8-2.4)
[2024-05-31 06:29] LABS: BILIRUBIN,TOTAL 0.5 mg/dL (0.2-1)
[2024-05-31] MEDS: ALBUTEROL SO4 2.5/IPRATROPIUM 0.5 INH SOL 3 ML VIAL.NEB. NEB SCH (13:33)
[2024-05-31] MEDS: guaiFENesin/CODEINE 5 ML UNIT-DOSE CUPS PO PRN (13:53)
[2024-05-31] MEDS ORDERED: PIPERACILLIN/TAZOB 3.375 GM 50 ML IVPB SCH (14:36)
[2024-05-31] MEDS: PIPERACILLIN/TAZOB 3.375 GM 3.375 GM in DEXTROSE 5%-WATER - 50 ML IVPB SCH (14:40)
[2024-05-31] MEDS: PIPERACILLIN/TAZOB 3.375 GM 50 ML IVPB SCH (15:30)
[2024-05-31] MEDS ORDERED: ALBUTEROL SO4 0.083% IH SOL 2.5 MG/3 ML VIAL.NEB. NEB PRN (15:36)
[2024-05-31] MEDS: INSULIN (NOVOLOG) ASPART 100 UNITS/ML 10ML VIAL SQ SCH (16:35)
[2024-05-31] MEDS: HEPARIN NA (PORCINE) 5,000 UNITS/ML 1ML VIAL SQ SCH (21:18)
[2024-06-01] MEDS: ACETAMINOPHEN 325 MG TABLET (FP) PO ONE (02:57)
[2024-06-01] MEDS: LEVOTHYROXINE NA 112 MCG TABLET (FP) PO SCH (06:15)
[2024-06-01] MEDS: PANTOPRAZOLE 20 MG TABLET PO SCH (10:13)
[2024-06-01 10:48] LABS: BASO % 0.3 % (0-2.0); EOS % 0.4 % (0-4.5); HEMATOCRIT 37.3 % (32.4-45.2); HEMOGLOBIN 12.4 GM/dL (10.7-15.3); MCH 27.6 pg (25.7-33.7); MCHC 33.3 g/dl (32.0-36.0); MEAN CELL VOLUME 82.9 fl (80-96); MEAN PLT VOLUME 8.5 fl (7.5-11.1); MONO % 9.4 % (3.8-10.2); NEUT % 75.9 % (42.8-82.8); PLATELET COUNT 244 10^3/uL (134-434); RDW 14.4 % (11.6-15.6); WHITE BLOOD COUNT 9.5 K/mm3 (4.0-10.0)
[2024-06-01 11:17] LABS: POTASSIUM 3.6 mmol/L (3.5-5.1)
[2024-06-01 11:19] LABS: CALCIUM 9.2 mg/dL (8.5-10.1)
[2024-06-01 11:20] LABS: ALBUMIN 3.1 g/dl (3.4-5.0)
[2024-06-01 11:22] LABS: CREATININE 0.8 mg/dL (0.55-1.3)
[2024-06-01 11:24] LABS: BILIRUBIN,TOTAL 0.5 mg/dL (0.2-1); TOT PROT 6.7 g/dl (6.4-8.2)
[2024-06-01] MEDS: KETOROLAC TROMETHAMINE 30 MG/1 ML VIAL IVPUSH PRN (15:19)
[2024-06-01] MEDS: LIDOCAINE 5% TOPICAL PATCH TP SCH (18:01)
[2024-06-01] MEDS: methylPREDNISolone NA SUCC 40 MG/1 ML VIAL IVPUSH SCH (18:02)
[2024-06-01] MEDS: POTASSIUM CHLORIDE ORAL LIQUID 20 MEQ/15 ML PO ONE (18:18)
[2024-06-01] MEDS: FLUTICASONE/UMECLIDIN/VILANTER(200-62.5-25 TRELEGY ELLIPTA) INAHLER IH SCH (18:39)
[2024-06-01] MEDS: AZITHROMYCIN IVPB 500 MG/250 ML BAG IVPB SCH (21:37)
[2024-06-01] MEDS: hydrOXYzine PAMOATE 25 MG CAPSULE (FP) PO SCH (21:40)
[2024-06-01] MEDS: LIDOCAINE PATCH REMOVAL MC SCH (21:40)
[2024-06-01] MEDS: POLYETHYLENE GLYCOL (HEALTHYLAX) 3350 17 GM PACKET PO SCH (21:40)
[2024-06-01] MEDS: busPIRone HCL 10 MG TABLET (FP) PO SCH (21:40)
[2024-06-01] MEDS: traZODone HCL 100 MG TABLET (FP) PO SCH (21:40)
[2024-06-02] MEDS: PIPERACILLIN/TAZOB 3.375 GM 50 ML IVPB SCH (02:07)
[2024-06-02] MEDS: busPIRone HCL 10 MG TABLET (FP) PO SCH (10:07)
[2024-06-02] MEDS: PARoxetine HCL 20 MG TABLET PO SCH ×2 (10:07→10:15)
[2024-06-02] MEDS: AZITHROMYCIN IVPB 500 MG/250 ML BAG IVPB SCH (10:09)
[2024-06-02] MEDS: SUCRALFATE 1 GM TABLET (FP) PO SCH (10:10)
[2024-06-02] MEDS: PANTOPRAZOLE 40 MG TABLET PO SCH (10:10)
[2024-06-02 11:02] LABS: POTASSIUM 3.8 mmol/L (3.5-5.1)
[2024-06-02 11:05] LABS: ALBUMIN 3.2 g/dl (3.4-5.0)
[2024-06-02 11:06] LABS: BLOOD UREA NITROGEN 14.4 mg/dL (7-18)
[2024-06-02 11:08] LABS: CREATININE 1.1 mg/dL (0.55-1.3)
[2024-06-02 11:10] LABS: BILIRUBIN,TOTAL 0.6 mg/dL (0.2-1); TOT PROT 7.4 g/dl (6.4-8.2)
[2024-06-02] MEDS: INSULIN (NOVOLOG) ASPART 100 UNITS/ML 10ML VIAL SQ ONE ×2 (19:17→22:45)
[2024-06-02 20:19] LABS: GLUCOSE,RANDOM 494 mg/dL (74-106)
[2024-06-02] MEDS: ATORVASTATIN CA 20 MG TABLET (FP) PO SCH (21:55)
[2024-06-02] MEDS ORDERED: INSULIN ASPART SLIDING SCALE (NOVOLOG) 1 VIAL SQ SCH (22:00)
[2024-06-03] MEDS: sitaGLIPtin PHOSPHATE 50 MG TABLET PO SCH (06:22)
[2024-06-03] MEDS: PIPERACILLIN/TAZOB 3.375 GM 3.375 GM in DEXTROSE 5%-WATER - 50 ML IVPB SCH (07:41)
[2024-06-03] MEDS: ACETAMINOPHEN 325 MG TABLET (FP) PO PRN (13:40)
[2024-06-03] MEDS: SODIUM CHLORIDE 0.9%/KCL 20 MEQ/1,000 ML INFUS.BAG IV SCH (14:06)
[2024-06-03 15:14] LABS: HEMATOCRIT 36.4 % (32.4-45.2); HEMOGLOBIN 11.8 GM/dL (10.7-15.3); MCH 27.4 pg (25.7-33.7); MCHC 32.3 g/dl (32.0-36.0); MEAN CELL VOLUME 84.8 fl (80-96); MEAN PLT VOLUME 8.5 fl (7.5-11.1); PLATELET COUNT 278 10^3/uL (134-434); RBC 4.29 M/mm3 (3.60-5.2); RDW 14.3 % (11.6-15.6); WHITE BLOOD COUNT 16.6 K/mm3 (4.0-10.0)
[2024-06-03 15:34] LABS: POTASSIUM 5.6 mmol/L (3.5-5.1)
[2024-06-03 15:36] LABS: ALBUMIN 2.8 g/dl (3.4-5.0); BLOOD UREA NITROGEN 15.1 mg/dL (7-18); CALCIUM 9.6 mg/dL (8.5-10.1)
[2024-06-03 15:39] LABS: CREATININE 1.1 mg/dL (0.55-1.3)
[2024-06-03 15:41] LABS: BILIRUBIN,TOTAL 0.4 mg/dL (0.2-1); TOT PROT 6.6 g/dl (6.4-8.2)
[2024-06-03 15:54] LABS: ANISOCYTOSIS 0; HELMET CELLS 0; HOWELL-JOLLY BODIES 0; MACROCYTOSIS 0; OVALOCYTE 0; ROULEAU 0; SICKELED CELLS 0; TARGET CELLS 0; TEAR DROP CELLS 0; TOXIC GRANULATION 0
[2024-06-03] MEDS: SODIUM CHLORIDE 1,000 ML IV SCH (21:45)
[2024-06-04 06:56] VITALS: RESP 18
[2024-06-04 09:36] LABS: HEMATOCRIT 32.4 % (32.4-45.2); MCHC 33.9 g/dl (32.0-36.0); MEAN CELL VOLUME 82.6 fl (80-96); MEAN PLT VOLUME 8.5 fl (7.5-11.1); PLATELET COUNT 262 10^3/uL (134-434); RBC 3.92 M/mm3 (3.60-5.2); RDW 14.6 % (11.6-15.6); WHITE BLOOD COUNT 9.7 K/mm3 (4.0-10.0)
[2024-06-04 10:17] LABS: ANISOCYTOSIS 0; MACROCYTOSIS 0
[2024-06-04 10:46] LABS: POTASSIUM 4.3 mmol/L (3.5-5.1)
[2024-06-04 10:48] LABS: ALBUMIN 2.4 g/dl (3.4-5.0); CALCIUM 9.4 mg/dL (8.5-10.1)
[2024-06-04 10:49] LABS: BLOOD UREA NITROGEN 13.9 mg/dL (7-18)
[2024-06-04 10:51] LABS: CREATININE 0.9 mg/dL (0.55-1.3)
[2024-06-04 10:53] LABS: BILIRUBIN,TOTAL 0.2 mg/dL (0.2-1); TOT PROT 5.7 g/dl (6.4-8.2)
[2024-06-04 15:29] VITALS: BP 90/57; PULSE 76; TEMP 97.3
== END 2024-06-04 16:22 | disposition home or self-care (01) ==
LOC: JER 03:42 → JERBED 06:18 → UNDOADMOB 06:18 → INTOOBSV 06:18 → J5S 10:11 → JERBED 10:11 → J5S 06-01 10:46 → JERBED 06-01 10:46
PROVIDERS: ADMIT Family Medicine; ATTEND Family Medicine
PROC: 3E033GC Introduction of Other Therapeutic Substance into Peripheral Vein, Percutaneous Approach (ICD-10-PCS; principal; 2024-06-01)
PROC: 3E0333Z Introduction of Anti-inflammatory into Peripheral Vein, Percutaneous Approach (ICD-10-PCS; 2024-06-01)
PROC: 3E0F7SF Introduction of Other Gas into Respiratory Tract, Via Natural or Artificial Opening (ICD-10-PCS; 2024-06-01)
DX: J18.9 Pneumonia, unspecified organism (principal); J21.9 Acute bronchiolitis, unspecified; R07.81 Pleurodynia; K59.00 Constipation, unspecified; K29.50 Unspecified chronic gastritis without bleeding; D72.829 Elevated white blood cell count, unspecified; I10 Essential (primary) hypertension; E11.9 Type 2 diabetes mellitus without complications; E89.0 Postprocedural hypothyroidism; K86.1 Other chronic pancreatitis; Z79.84 Long term (current) use of oral hypoglycemic drugs
CPT/HCPCS: 36415; 71045-TC-FY; 71101-TC-RT-FY; 71250-TC; 80053; 82947; 82962; 83036; 83690; 83735; 84443; 84484; 85025; 85610; 85730; 86140; 87040; 87899; 93005; 93010; 93306-TC; 94640; 96372; 96374; 96375; 96376; 99285-25; G0378; J0131; J1644